=== PATIENT | female | born 2000 | race African-American/Black ===

== ENCOUNTER 2021-05-10 08:27 | Inpatient (IN) | payer MEDICAID ==
[~2021-05-10] VITALS: Ht 182.9 cm; Wt 115.2 kg
[2021-05-10] MEDS ORDERED: ONDANSETRON HCL 4MG/2ML INJ IV ONE (09:15)
[2021-05-10] MEDS ORDERED: SODIUM CHLORIDE 0.9% 1,000 ML IV ONE ×2 (09:15→12:45)
[2021-05-10 09:28] LABS: CHLORIDE 101 mEq/L (98-107)
[2021-05-10 09:32] LABS: CLARITY URINE TURBID (CLEAR); COLOR URINE RED (YELLOW); KETONES URINE 2+ (NEGATIVE); LEUKOCYTE ESTERASE URINE 1+ (NEGATIVE); NITRITE URINE POSITIVE (NEGATIVE); OCCULT BLOOD URINE NEGATIVE (NEGATIVE); PH URINE 5.5 (4.5-8.0); PROTEIN URINE 2+ (NEGATIVE); SPECIFIC GRAVITY URINE 1.037 (1.005-1.030)
[2021-05-10 09:34] LABS: BASOPHILS % 0.2 % (0.0-2.0); HEMATOCRIT. 39.1 % (36.0-48.0); HEMOGLOBIN. 13.4 g/dL (12.0-16.0); LYMPHOCYTES % 19.2 % (20.0-50.0); MEAN PLATELET VOLUME 9.1 fl (7.4-10.4); MONOCYTES % 9.3 % (2.0-8.0); NEUTROPHILS % 70.3 % (40.0-76.0); PLATELET 236 x1000/uL (130-400); RED BLOOD CELL COUNT 4.77 mill/uL (4.2-5.4); RED CELL DISTRIBUTION WIDTH 13.7 % (11.6-14.6)
[2021-05-10 10:03] LABS: B-HCG QUANTITATIVE 161707 mIU/mL (<3)
[2021-05-10] MEDS ORDERED: MAGNESIUM 2 G PREMIX 50 ML IV ONE (11:30)
[2021-05-10] MEDS ORDERED: KCL 20MEQ/100ML PREMIX 100 ML IV ONE ×6 (11:30→15:30)
[2021-05-10] MEDS: KCL 20MEQ/100ML PREMIX 100 ML IV SCH ×2 (12:32→16:12)
[2021-05-10] MEDS ORDERED: CEFTRIAXONE 1 G PREMIX 50 ML IV ONE (12:45)
[2021-05-10] MEDS ORDERED: ACETAMINOPHEN 325MG TABLET PO PRN ×2 (15:30)
[2021-05-10 17:28] VITALS: BP 130/66
[2021-05-10] MEDS ORDERED: ONDA4TAB5 PO (17:56)
[2021-05-10] MEDS ORDERED: METO10TA3 PO (17:56)
[2021-05-10] MEDS ORDERED: NITR-87 PO (17:56)
[2021-05-10] MEDS ORDERED: NITR-87 MT (17:56)
[2021-05-10 18:00] VITALS: BP 130/66
[2021-05-10 20:00] VITALS: BP 120/65
[2021-05-10] MEDS: DEXT 5%/0.9% NACL KCL 20MEQ/L 1,000 ML IV SCH (20:58)
[2021-05-11] VITALS: BP 115/66
[2021-05-11 04:00] VITALS: BP 117/65
[2021-05-11] MEDS: DEXT 5%/0.9% NACL KCL 20MEQ/L 1,000 ML IV SCH (06:06)
[2021-05-11 07:04] LABS: BASOPHILS % 0.2 % (0.0-2.0); EOSINOPHILS % 2.4 % (0.0-5.0); HEMATOCRIT. 34.8 % (36.0-48.0); HEMOGLOBIN. 11.8 g/dL (12.0-16.0); LYMPHOCYTES % 32.7 % (20.0-50.0); MEAN CORPUSCULAR HEMOGLOBIN 28.1 pg (28.0-32.0); MEAN CORPUSCULAR VOLUME 82.7 fL (81.0-99.0); NEUTROPHILS % 51.7 % (40.0-76.0); PLATELET 208 x1000/uL (130-400); RED CELL DISTRIBUTION WIDTH 13.8 % (11.6-14.6)
[2021-05-11 07:44] LABS: CHLORIDE 107 mEq/L (98-107)
[2021-05-11 07:54] LABS: PHOSPHORUS 3.7 mg/dL (2.5-4.9)
[2021-05-11 08:00] VITALS: BP 132/69
[2021-05-11] MEDS: CEFTRIAXONE 1,000 MG in DEXTROSE 5% WATER 50 ML IV SCH (08:52)
[2021-05-11] MEDS ORDERED: CEFTRIAXONE 1 G PREMIX 50 ML IV SCH (09:00)
[2021-05-11] MEDS: ONDANSETRON HCL 4MG/2ML INJ IV PRN ×2 (09:36→17:15)
[2021-05-11 12:10] VITALS: BP 129/66
[2021-05-11 16:07] VITALS: BP 119/76
[2021-05-11 20:00] VITALS: BP 119/67
[2021-05-11] MEDS ORDERED: DEXT 5%/0.9% NACL KCL 20MEQ/L 1,000 ML IV SCH (21:00)
[2021-05-12] VITALS: BP 113/68
[2021-05-12 04:00] VITALS: BP 126/60
[2021-05-12 06:14] LABS: BASOPHILS % 0.3 % (0.0-2.0); EOSINOPHILS % 2.9 % (0.0-5.0); HEMATOCRIT. 34.2 % (36.0-48.0); HEMOGLOBIN. 11.6 g/dL (12.0-16.0); LYMPHOCYTES % 37.6 % (20.0-50.0); MEAN CORPUSCULAR HEMOGLOBIN 28.2 pg (28.0-32.0); NEUTROPHILS % 48.2 % (40.0-76.0); PLATELET 195 x1000/uL (130-400); RED BLOOD CELL COUNT 4.12 mill/uL (4.2-5.4); RED CELL DISTRIBUTION WIDTH 13.7 % (11.6-14.6)
[2021-05-12 06:28] LABS: CHLORIDE 108 mEq/L (98-107)
[2021-05-12 06:42] LABS: PHOSPHORUS 3.8 mg/dL (2.5-4.9)
[2021-05-12 08:00] VITALS: BP 121/68
[2021-05-12] MEDS: CEFTRIAXONE 1,000 MG in DEXTROSE 5% WATER 50 ML IV SCH (09:00)
[2021-05-12 11:24] VITALS: BP 121/68
[2021-05-12 11:46] VITALS: BP 110/69
== END 2021-05-12 13:40 | disposition home or self-care (01) | DRG 566 ==
LOC: ER 08:27 → 8WST 12:46 → EDBEDREQ 12:49 → EDBEDREQTM 12:49 → ENRESERV 15:31
PROVIDERS: ADMIT Internal Medicine; ATTEND Internal Medicine
DX: O21.1 Hyperemesis gravidarum with metabolic disturbance (principal); O23.41 Unspecified infection of urinary tract in pregnancy, first trimester; N39.0 Urinary tract infection, site not specified; R74.01 Elevation of levels of liver transaminase levels; Z3A.13 13 weeks gestation of pregnancy
CPT/HCPCS: 36415; 76801; 76802; 80053; 81003; 83735; 84100; 84702; 85025; 99285; J0696; J2405; J3475; J3480; J7030; J7060